=== PATIENT | male | born 1980 | race Caucasian/White ===

== ENCOUNTER 2020-09-29 08:31 | Emergency (ER) | payer MEDICARE ==
[2020-09-29 08:53] VITALS: BP 143/88; PULSE 94
--- NOTE | 2020-09-29 08:56 | ERPHSYRPT ---
- History of Present Illness Time Seen by Provider: 09/29/20 08:47 Source: patient Exam Limitations: no limitations Physician History: 40 years old with history of hypertension presented in the ER with chief complaint of right breast area redness and swelling started 2 days ago with gradual worsening and spreading around the nipple. Reports it started as a small area of redness and since yesterday it is much more increased in size. Warm and painful to palpation. Denies any fever or chills. Does not recall any insect bite or trauma. No history of MRSA. Timing/Duration: day(s) (2), gradual onset, worse Quality: burning, painful Severity: moderate Location: torso Possible Causes: no cause identified Associated Symptoms: swelling/mass/lumps, No fever Allergies/Adverse Reactions: No Known Drug Allergies Allergy (Verified 09/29/20 08:54) Home Medications: Dextroamphetamine/Amphetamine [Dextroamp-Amphetamin 10 mg Tab] 10 mg PO DAILY 09/29/20 [History] - Review of Systems Constitutional: No Symptoms Eyes: No Symptoms Ears, Nose, & Throat: No Symptoms Respiratory: No Symptoms Cardiac: No Symptoms Abdominal/Gastrointestinal: No Symptoms Genitourinary Symptoms: No Symptoms Musculoskeletal: No Symptoms Skin: Cellulitis, Induration, Rash, Skin Lesions Neurological: No Symptoms Psychological: No Symptoms Endocrine: No Symptoms Hematologic/Lymphatic: No Symptoms Immunological/Allergic: No Symptoms - Nursing Vital Signs Nursing Vital Signs: Initial Vital Signs Temperature 98.2 F 09/29/20 08:38 Pulse Rate 94 H 09/29/20 08:38 Blood Pressure 143/88 09/29/20 08:38 O2 Sat by Pulse Oximetry 99 09/29/20 08:38 Pain Scale Pain Intensity 5 - Physical Exam General Appearance: no apparent distress, alert Ears, Nose, Throat Exam: normal ENT inspection Neck Exam: normal inspection, non-tender, supple, full range of motion Respiratory Exam: normal breath sounds, chest tenderness (Induration redness around right nipple almost 8 x 5 cm. Warm and tender to palpation. No fluctuation. Blanchable.), lungs clear Cardiovascular Exam: regular rate/rhythm, normal heart sounds Gastrointestinal/Abdomen Exam: soft Back Exam: normal inspection, normal range of motion Extremity Exam: normal inspection, normal range of motion Neurologic Exam: alert, oriented x 3, cooperative Skin Exam: rash SpO2 Interpretation: normal SpO2: 98 O2 Delivery: Room Air - Progress Progress: unchanged Progress Note: 09/29/20 08:51 I believe patient is developing cellulitis which could be secondary to insect bite versus folliculitis with secondary infection. Started on antibiotics, recommended outpatient follow-up. Discussed signs symptoms of worsening needing return to ER which he seems understanding. Stable for discharge. Counseled pt/family regarding: diagnosis, need for follow-up - Departure Departure Disposition: Home Clinical Impression: Cellulitis of breast of male Condition: Stable Critical Care Time: No Referrals: MARIA LUZ ARAUZ [ACTIVE STAFF] - (1-2 days for reevaluation) Instructions: Insect Bites and Stings (DC), Cellulitis (Skin Infection), Adult (DC) Additional Instructions: Use Tylenol/ibuprofen as needed for pain. Follow-up with primary care physician for Prescriptions: Ibuprofen 600 mg PO Q6HPRN PRN 10 Days #20 tablet PRN Reason: Pain Smz/Tmp Ds Tablet [Bactrim Ds Tablet] 1 udtab PO BID #14 tablet
[2020-09-29 23:18] VITALS: O2SAT 98
== END 2020-09-29 09:13 | disposition home or self-care (01) ==
LOC: ED 08:31
DX: N61.0 Mastitis without abscess (principal)
CPT/HCPCS: 99283